=== PATIENT | female | born 1935 | race Two or more races ===

== ENCOUNTER → 2018-05-04 | Outpatient (CLI) | payer MEDICARE, MEDICAID ==
--- NOTE | 2018-05-04 13:21 | RADIOLOGY REPORT (SQ) ---
EXAM DESCRIPTION: CHEST PA/LATERAL COMPLETED DATE/TIME: 05/04/2018 11:58 am REASON FOR STUDY: PNEUMONIA, UNSPECIFIED ORGANISM COMPARISON: None. EXAM PARAMETERS: NUMBER OF VIEWS: two views TECHNIQUE: Digital Frontal and Lateral radiographic views of the chest acquired. RADIATION DOSE: NA LIMITATIONS: none FINDINGS: LUNGS AND PLEURA: No opacities, masses or pneumothorax. No pleural effusion. MEDIASTINUM AND HILAR STRUCTURES: No masses or contour abnormalities. HEART AND VASCULAR STRUCTURES: Heart normal size. No evidence for failure. BONES: No acute findings. HARDWARE: None in the chest. OTHER: No other significant finding. IMPRESSION: NO SIGNIFICANT RADIOGRAPHIC FINDING IN THE CHEST. TECHNICAL DOCUMENTATION: JOB ID: [id number] [employer] (formerly [employer])- All Rights Reserved Reading location - IP/workstation name: [email or web address]
== END ==
LOC: OD 11:40
PROVIDERS: ATTEND Internal Medicine
DX: J18.9 Pneumonia, unspecified organism (principal)
CPT/HCPCS: 71046

== ENCOUNTER 2018-12-31 18:36 | Emergency (ER) | payer MEDICARE, MEDICAID ==
[2018-12-31 19:14] VITALS: BP 154/68
[2018-12-31] MEDS ORDERED: ONDANSETRON HCL INJ/PF 4 MG/2 ML SDV IV ONE (19:20)
[2018-12-31] MEDS ORDERED: FENTANYL CITRATE INJ/PF 100 MCG/2 ML AMPUL IV ONE (19:20)
--- NOTE | 2018-12-31 19:37 | ER Document Report ---
ED Fall - General Chief Complaint: Fall Injury Stated Complaint: FALL/HEADACHE Time Seen by Provider: 12/31/18 19:18 Primary Care Provider: KASSIDY MCKEON MD [Primary Care Provider] - 01/02/19 KRISTIE BLANKENSHIP MD [ACTIVE STAFF] - 01/02/19 Notes: 83-year-old female fell from a standing height after tripping. Not a syncopal episode. Witnessed by family members. Fell forward landing on her face and chest. Landing on left knee as well. Complaining of pain in the left knee, bilateral shoulder, anterior chest, neck and face and head. Not on blood thinners. No other major medical problems. No loss of consciousness. Patient was seen by EMS. Placed in c-collar and backboard and brought to the emergency department in stable condition. Vision is complaining of pain mostly in the shoulders and the neck. TRAVEL OUTSIDE OF THE [place] IN LAST 30 DAYS: No - HPI Occurred: Just prior to arrival Where: Other - [facility] Context: Tripped Associated symptoms: None - Related data Allergies/Adverse Reactions: No Known Allergies Allergy (Unverified 12/31/18 19:50) Past Medical History - General Information source: Patient, Relative - Social History Smoking Status: Never Smoker Cigarette use (# per day): No Drug Abuse: None Lives with: Family Family History: Reviewed & Not Pertinent Patient has suicidal ideation: No Patient has homicidal ideation: No Renal/ Medical History: Denies: Hx Peritoneal Dialysis Review of Systems - Review of Systems Notes: Constitutional: denies: Chills, Diaphoresis, Fever, Malaise, Weakness EENT: denies: Eye discharge, Blurred vision, Tearing, Double vision, Nose congestion, Nose discharge, Throat swelling, Mouth pain. Complaining of hematoma and pain around the left eye. Cardiovascular: denies: Palpitations, Heart racing, Orthopnea, Dyspnea, Chest pain Respiratory: denies: Cough, Hurts to breathe, Wheezing, Shortness of breath Gastrointestinal: denies: Abdominal pain, Diarrhea, Nausea, Vomiting, Black stools, bright red blood in stool Genitourinary: denies: Burning, Dysuria, Discharge, Frequency, Flank pain, Hematuria Musculoskeletal: Planing of pain in the neck, bilateral shoulders, left knee, anterior chest. Hematologic/Lymphatic: denies: Anemia, Easy bleeding, Easy bruising, Blood clots Neurological/Psychological: denies: Confusion, Dementia, Depression, Loss of consciousness Skin: No lesions, no masses, no skin breakdown, no abscesses and complaining of contusion and hematoma to the face left eye Physical Exam - Vital signs Vitals: Resp Pulse Ox 12 100 12/31/18 18:53 12/31/18 18:53 Interpretation: Normal - General General appearance: Appears well, Alert - HEENT Head: Normocephalic, Other - There is ecchymosis and tenderness with hematoma noted to the left supraorbital area and face. There is tenderness to palpation of the cervical spine. Eyes: Normal Pupils: PERRL Mouth/Lips: Normal Mucous membranes: Normal Pharynx: Normal Neck: Other - Midline tenderness of the cervical spine - Respiratory Respiratory status: No respiratory distress Chest status: Nontender Breath sounds: Normal Chest palpation: Normal - Cardiovascular Rhythm: Regular Heart sounds: Normal auscultation Murmur: No - Abdominal Inspection: Normal Distension: No distension Bowel sounds: Normal Tenderness: Nontender Organomegaly: No organomegaly - Back Back: Normal, Nontender. No: Tender, Deformity/step-off, CVA tenderness, Vertebra tenderness, Wounds - Extremities General upper extremity: Other - There is tenderness to palpation to the bilateral shoulders. No deformity at the humerus, elbow, wrist or hands.. No: Edema General lower extremity: Other - There is a stable pelvis. There is no tenderness to palpation of the hips. No tenderness to palpation of the pelvis. There is no obvious leg length discrepancy. There is tenderness to palpation of the left knee.. No: Louis's sign - Neurological Neuro grossly intact: Yes Cognition: Normal Orientation: AAOx4 [place] Coma Scale Eye Opening: Spontaneous [place] Coma Scale Verbal: Oriented [place] Coma Scale Motor: Obeys Commands [place] Coma Scale Total: 15 Speech: Normal Motor strength normal: LUE, RUE, LLE, RLE Sensory: Normal - Psychological Associated symptoms: Normal affect, Normal mood - Skin Skin Temperature: Warm Skin Moisture: Dry Skin Color: Other - There is bruising and ecchymosis noted to the left supra orbital L and periorbital area. Hematoma noted above the left eye Course - Re-evaluation Re-evalutation: 12/31/18 21:45 Fracture care: Initial 24 hours of definitive fracture care provided by Dr. Mccarty in the emergency department. Cervical Spine CT 12/31/18 19:18 IMPRESSION: No acute fracture or subluxation. Degenerative changes. Chest X-Ray 12/31/18 19:18 IMPRESSION: No evidence of acute cardiopulmonary disease. Head CT 12/31/18 19:18 IMPRESSION: No acute intracranial abnormalities. Left supraorbital/forehead soft tissue hematoma. Shoulder X-Ray 12/31/18 19:18 IMPRESSION: No acute fracture or dislocation. Knee X-Ray 12/31/18 19:19 IMPRESSION: Acute nondisplaced mid patellar fracture. Suprapatellar fluid collection. Patient has a an acute nondisplaced mid patellar fracture. There is a small amount of fluid on the knee. Patient will need to be seen as an outpatient by orthopedics. Her head CT, C-spine CT, bilateral shoulders, chest x-ray does not reveal any significant abnormalities. Patient is alert and in no major distress at this time. I did offer an observation admission at this time for pain control but patient would like to go home. Family members are at the bedside and they are reliable. They can take care of the patient at this time. I am going to discharge her with outpatient follow-up. I have given him strict instructions to wake her up every 4 hours to check her mental status. I will discharged him with some pain medication for the acute period as well as some nausea medication. They know that the pain medication can cause nausea and can cause constipation so we have advised to be quite aggressive with bowel care. Family members are okay with this plan at this time. Will discharge in stable condition. 12/31/18 21:53 Splint: A long leg knee immobilizer splint was placed on the left lower extremity. Patient tolerated procedure well.'s splint was reexamined and pulses are intact distally of the dorsalis pedis and posterior tibialis. No complications. Sensation intact. 12/31/18 21:55 Repeat evaluation performed after all of imaging studies were complete. Patient's lungs are clear. Equal pulses of bilateral upper lower extremities. Patient is alert and oriented in no acute distress at this time. Remained stable for discharge. - Vital Signs Vital signs: Temp Pulse Resp BP Pulse Ox 11 L 154/68 H 98 12/31/18 19:01 12/31/18 19:01 04/06/19 20:34 - EKG Interpretation by Sc EKG shows normal: Sinus rhythm, Raymond, Intervals, QRS Complexes, ST-T Waves Discharge - Discharge Clinical Impression: Contusion, shoulder /upper arm Left patella fracture Qualifiers: Encounter type: initial encounter Fracture type: closed Fracture morphology: comminuted Fracture alignment: nondisplaced Qualified Code(s): S82.045A - Nondisplaced comminuted fracture of left patella, initial encounter for closed fracture Periorbital contusion of left eye Qualifiers: Encounter type: initial encounter Qualified Code(s): S05.12XA - Contusion of eyeball and orbital tissues, left eye, initial encounter Closed head injury Qualifiers: Encounter type: initial encounter Qualified Code(s): S09.90XA - Unspecified injury of head, initial encounter Condition: Good Disposition: HOME, SELF-CARE Instructions: Contusion ([facility]), Fractured Patella ([facility]), Head Injury Precautions ([facility]), Knee Immobilizing Splint ([facility]), Shoulder Injury ([facility]) Additional Instructions: You will need to be seen by orthopedics for evaluation of your knee. More lik lisa this will be nonoperative but I prefer that you follow-up with an orthopedic surgeon. Follow-up information for orthopedic surgery has been provided. Please follow-up with your primary care doctor for repeat evaluation on Wednesday. In the event that you develop any worsening pain, chest pain, difficulty breathing, uncontrolled vomiting, confusion or any other concerns please return immediately. Prescriptions: Docusate Sodium [Colace 100 mg Capsule] 100 mg PO DAILY 15 Days #30 capsule Hydrocodone/Acetaminophen [[place] 5-325 mg Tablet] 0.5 tab PO Q6 PRN 4 Days #12 t ablet PRN Reason: Ondansetron [Zofran Odt 4 mg Tablet] 1 - 2 tab PO Q4H PRN #15 tab.rapdis PRN Reason: For Nausea/Vomiting Referrals: KASSIDY MCKEON MD [Primary Care Provider] - 01/02/19 KRISTIE BLANKENSHIP MD [ACTIVE STAFF] - 01/02/19
--- NOTE | 2018-12-31 20:37 | RADIOLOGY REPORT (SQ) ---
EXAM DESCRIPTION: CT HEAD WITHOUT IV CONTRAST COMPLETED DATE/TME: 12/31/2018 19:18 CLINICAL HISTORY: fall, pain COMPARISON: None Available. TECHNIQUE: Contiguous axial images of the brain were obtained without the administration of intravenous contrast. This exam was performed according to our departmental dose-optimization program, which includes automated exposure control, adjustment of the mA and/or kV according to patient size and/or use of iterative reconstruction technique. FINDINGS: There is no acute intracranial hemorrhage or mass effect. Ventricular system is within normal limits. There is adequate flores-white matter differentiation. There is no skull fracture. Lobular opacity within the right maxillary sinus may represent a mucoid retention cyst. There is a hematoma within the left periorbital level/forehead. IMPRESSION: No acute intracranial abnormalities. Left supraorbital/forehead soft tissue hematoma.
--- NOTE | 2018-12-31 20:41 | RADIOLOGY REPORT (SQ) ---
EXAM DESCRIPTION: CT CERVICAL SPINE WITHOUT IV CONTRAST COMPLETED DATE/TME: 12/31/2018 19:18 CLINICAL HISTORY: fall, pain COMPARISON: None Available TECHNIQUE: Contiguous axial images of the cervical spine were obtained without the administration of intravenous contrast followed by reconstruction images. This exam was performed according to our departmental dose-optimization program, which includes automated exposure control, adjustment of the mA and/or kV according to patient size and/or use of iterative reconstruction technique. FINDINGS: There is no acute fracture or subluxation. Prevertebral soft tissues are within normal limits. There is bilateral neural foramina narrowing at C5-C6 and left neural foramina narrowing at C6-7. There is atherosclerosis. 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 IMPRESSION: No acute fracture or subluxation. Degenerative changes.
--- NOTE | 2018-12-31 21:06 | RADIOLOGY REPORT (SQ) ---
EXAM DESCRIPTION: XR CHEST 1 VIEW COMPLETED DATE/TME: 12/31/2018 19:18 CLINICAL HISTORY: fall, pain COMPARISON: May 04, 2018 FINDINGS: Cardiac silhouette is within normal limits. There is atherosclerosis. EKG leads project over the chest. There is no focal parenchymal or pleural disease. There is no acute osseous process visualized. IMPRESSION: No evidence of acute cardiopulmonary disease.
--- NOTE | 2018-12-31 21:07 | RADIOLOGY REPORT (SQ) ---
EXAM DESCRIPTION: XR KNEE 1-2 VIEWS COMPLETED DATE/TME: 12/31/2018 19:19 CLINICAL HISTORY: fall, pain COMPARISON: None FINDINGS: Two x-ray views of the left knee were submitted. There is an acute nondisplaced fracture at the mid patella. There is a suprapatellar fluid collection. There is atherosclerosis. There is no dislocation. There is no radiopaque foreign body material. IMPRESSION: Acute nondisplaced mid patellar fracture. Suprapatellar fluid collection.
--- NOTE | 2018-12-31 21:08 | RADIOLOGY REPORT (SQ) ---
EXAM DESCRIPTION: XR SHOULDER 2 OR MORE VIEWS BILATERAL COMPLETED DATE/TME: 12/31/2018 19:18 CLINICAL HISTORY: fall, pain COMPARISON: None FINDINGS: Three x-ray views of the right and left shoulder were submitted. There is no acute fracture or dislocation. There is no radiopaque foreign body material. IMPRESSION: No acute fracture or dislocation.
--- NOTE | 2018-12-31 21:13 | EKG REPORT ---
SEVERITY:- ABNORMAL ECG - PACEMAKER SPIKES OR ARTIFACTS SINUS ARRHYTHMIA, RATE 60-100 LEFT VENTRICULAR HYPERTROPHY NONSPECIFIC LATERAL ST-T CHANGES : Confirmed by: Sunil Stevens MD 31-Dec-2018 21:12:52
[2018-12-31] MEDS ORDERED: ACETAMINOPHEN 325 MG TABLET PO ONE (21:47)
[2018-12-31] MEDS ORDERED: KETOROLAC TROMETHAMINE INJ/PF 30 MG/1 ML SDV IV ONE (21:47)
[2018-12-31] MEDS ORDERED: HYDROCODONE/ACETAMINOPHEN 5-325 MG (6 TAB/ER DISP) PO PRN (21:49)
[2018-12-31] MEDS ORDERED: ONDANSETRON ODT 4 MG TAB (6 TAB/ER DISP) PO PRN (21:49)
== END 2018-12-31 22:36 | disposition home or self-care (01) ==
LOC: ER 18:36
DX: S05.12XA Contusion of eyeball and orbital tissues, left eye, initial encounter (principal); S09.90XA Unspecified injury of head, initial encounter; S82.045A Nondisplaced comminuted fracture of left patella, initial encounter for closed fracture; S40.019A Contusion of unspecified shoulder, initial encounter; M25.512 Pain in left shoulder; M25.511 Pain in right shoulder; R07.89 Other chest pain; M54.2 Cervicalgia; W01.0XXA Fall on same level from slipping, tripping and stumbling without subsequent striking against object, initial encounter; Y92.512 Supermarket, store or market as the place of occurrence of the external cause
CPT/HCPCS: 93005; 99284; 96374; 96375; 71045; 73560; 73030; 70450; 72125; 93010; L1830; L0120; A9270 ×3; J3010; J1885; J2405